=== PATIENT | female | born 1955 | race Caucasian/White ===

== ENCOUNTER 2017-07-11 09:12 | Emergency (ER) | payer MEDICAID, MEDICARE ==
[2017-07-11] MEDS ORDERED: Lidocaine 1% 20 ML MDV INFILT ONE (09:13)
--- NOTE | 2017-07-11 10:07 | EDM.PDOC ---
ED HPI GENERAL MEDICAL PROBLEM - General Chief Complaint: Laceration Stated Complaint: CUT RIGHT HAND Time Seen by Provider: 07/11/17 09:15 Source of Information: Reports: Patient History Limitations: Reports: No Limitations - History of Present Illness INITIAL COMMENTS - FREE TEXT/NARRATIVE: c/o lac of R hand pt at home, doing dishes, knife in dishwater, cut her thenar eminence last Td 2y ago not working outside of house, lives with boyfriend who is trucking contractor, has 3 dtrs Rt palm Pain Score (Numeric/FACES): 9 - Related Data Allergies Allergy/AdvReac Type Severity Reaction Status Date / Time No Known Allergies Allergy Verified 07/11/17 09:33 Home Meds: Home Meds Gabapentin [Neurontin] 100 mg PO ASDIRECTED 03/07/15 [History] Venlafaxine [Effexor XR] 75 mg PO DAILY 03/07/15 [History] Acetaminophen [Tylenol Arthritis Pain] 650 mg PO Q6H PRN 03/08/15 [History] Bisacodyl [Dulcolax] 2 tab PO DAILY 03/08/15 [History] Calcium Carbonate/Vitamin D3 [Calcium 500 + Vit D Caplet] 1 each PO DAILY [History] Ibuprofen/Diphenhydramine Cit [Advil PM Caplet] 1 tab PO BEDTIME 03/08/15 [ History] Multivitamin W/Iron, Minerals [Multivitamins with Iron] 1 each PO DAILY [History] Omeprazole Magnesium [Prilosec Otc] 20 mg PO DAILY PRN 03/08/15 [History] Cephalexin 500 mg PO TID #9 tablet 07/11/17 [Rx] Past Medical History HEENT History: Reports: Impaired 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: Musculoskeletal History: Reports: Back Pain, Chronic - Past Surgical History Other HEENT Surgeries/Procedures: ALL TOOTH EXTRACTION IN 2013 Female Surgical History: Reports: Tubal Ligation Other Musculoskeletal Surgeries/Procedures:: back surgery Social & Family History - Family History Family Medical History: Unobtainable - Tobacco Use Smoking Status *Q: Never Smoker Years of Tobacco use: 45 Packs/Tins Daily: 1 Used Tobacco, but Quit: Yes Second Hand Smoke Exposure: Yes - Caffeine Use Caffeine Use: Reports: Coffee, Soda, Tea - Recreational Drug Use Recreational Drug Use: No ED ROS GENERAL - Review of Systems Review Of Systems: See Below Constitutional: Reports: No Symptoms HEENT: Reports: No Symptoms Respiratory: Reports: No Symptoms Cardiovascular: Reports: No Symptoms Endocrine: Reports: No Symptoms GI/Abdominal: Reports: No Symptoms : Reports: No Symptoms Musculoskeletal: Reports: No Symptoms Skin: Reports: Other (lac hand) Neurological: Reports: No Symptoms Psychiatric: Reports: No Symptoms Hematologic/Lymphatic: Reports: No Symptoms Immunologic: Reports: No Symptoms ED EXAM, SKIN/RASH Exam: See Below Exam Limited By: No Limitations General Appearance: Alert, WD/WN, No Apparent Distress Skin: Other (R hand with 2 cm linear lac just into muscle, depth 2 nnm horizontal, midway between thumb and index finger, on palm, no fb, 1% lido without with #30 needle used for local with good analgesia except for 1st suture , cleaned x 12 with gauze and NS, 3-0 Ethilon interrupted x 4 used for closure, good apposition of margins) Course - Vital Signs Last Recorded V/S: Last Vital Signs Temp 36.6 C 07/11/17 09:15 Pulse 108 H 07/11/17 09:15 Resp 16 07/11/17 09:15 BP 149/109 H 07/11/17 09:15 Pulse Ox 100 07/11/17 09:15 - Orders/Labs/Meds Meds: Medications Discontinued Medications Generic Name Dose Route Start Last Admin Trade Name Rigoberto PRN Reason Stop Dose Admin Lidocaine HCl 5 ml 07/11/17 09:35 Xylocaine-Mpf 1% INJECT 07/11/17 09:36 ONETIME ONE Departure - Departure Time of Disposition: 10:05 Disposition: Home, Self-Care 01 Condition: Good Clinical Impression: Laceration of hand, right - Discharge Information Prescriptions: Cephalexin 500 mg PO TID #9 tablet Instructions: Laceration Care, Adult Referrals: Va Gomez, CHIEF DEPUTY COURT CLERK [Primary Care Provider] - Additional Instructions: Keep clean and dry. To decrease risk of infection, take cephalexin 500 mg 1 tab 3 times a day for 3 days. See your doctor in 1 week to remove sutures. See your doctor the same day, or return to the ED, for any increase in redness, swelling, pain, warmth, fever or drainage. Call your Physician or Return to Emergency Department if: * Your condition worsens in any way. * You develop fever greater than 100.4. * You have vomitting that does not stop with medications. * You have pain that is not controlled with medications.
[2017-07-11 10:40] VITALS: BP 152/86
== END 2017-07-11 10:20 | disposition home or self-care (01) ==
LOC: FB.ED 09:12
DX: S61.411A Laceration without foreign body of right hand, initial encounter (principal); W26.0XXA Contact with knife, initial encounter; Y93.89 Activity, other specified; Y92.009 Unspecified place in unspecified non-institutional (private) residence as the place of occurrence of the external cause; Z79.899 Other long term (current) drug therapy
CPT/HCPCS: 12002; 12041; 99282; 99283

== ENCOUNTER 2017-12-13 07:55 | Day surgery (SDC) | payer MEDICARE, OTHER ==
[2017-12-13] MEDS ORDERED: Sodium Chloride 0.9% 10 ML Syringe FLUSH PRN (08:15)
[2017-12-13] MEDS ORDERED: Lactated Ringers 1,000 ML IV SCH (08:15)
--- NOTE | 2017-12-13 09:31 | PCM.HPR ---
H & P Addendum review - H & P Addendum Review Date of Original H & P: 12/10/17 Date Reviewed: 12/13/17 Time Reviewed: 09:31 Patient was Examined: No Changes
[2017-12-13] MEDS ORDERED: Midazolam 1 MG/ML 2 ML SDV IV ONE (09:45)
[2017-12-13] MEDS ORDERED: Ondansetron 4 MG/2 ML SDV IVPUSH ONE (09:45)
[2017-12-13] MEDS ORDERED: fentaNYL 100 MCG/2 ML SDV IV ONE (09:45)
[2017-12-13] MEDS ORDERED: Lactated Ringers 1,000 ML IV ONE (09:45)
[2017-12-13] MEDS ORDERED: Glycopyrrolate 0.2 MG/ML 5 ML MDV IV ONE (09:45)
[2017-12-13] MEDS ORDERED: Propofol 200 MG/20 ML SDV IV ONE (09:45)
[2017-12-13] MEDS ORDERED: Rocuronium 100 MG/10 ML MDV IV ONE (09:45)
[2017-12-13] MEDS ORDERED: Neostigmine Methylsulfate 10 MG/10 ML MDV IVPUSH ONE (09:45)
[2017-12-13] MEDS ORDERED: Ketorolac 30 MG/ML SDV IVPUSH ONE (09:45)
--- NOTE | 2017-12-13 10:42 | PCM.OPNOTE ---
- General Post-Op/Procedure Note Date of Surgery/Procedure: 12/13/17 Operative Procedure(s): Lap Paola Findings: Chronic Cholecystitis Pre Op Diagnosis: Chronic Cholecystitis Post-Op Diagnosis: Same Anesthesia Technique: General ET Tube Primary Surgeon: Ramesh Melissa Pathology: GB EBL in mLs: 5 Complications: None Condition: Good
[2017-12-13] MEDS ORDERED: Morphine 2 MG/ML Syringe IVPUSH PRN (10:44)
[2017-12-13] MEDS ORDERED: Acetaminophen/HYDROcodone 325-5 MG Tab PO PRN (10:44)
[2017-12-13] MEDS ORDERED: hydrOXYzine HCl 50 MG/ML SDV IM ONE (11:42)
[2017-12-13 13:49] VITALS: BP 133/85
--- NOTE | 2017-12-13 14:18 | OR ---
DATE OF OPERATION: 12/13/2017 SURGEON: Ramesh Melissa MD PREOPERATIVE DIAGNOSIS: Chronic cholecystitis. POSTOPERATIVE DIAGNOSIS: Chronic cholecystitis. PROCEDURE: Laparoscopic cholecystectomy. ANESTHESIA: General. PROCEDURE IN DETAIL: Patient was brought to the operating room, where general endotracheal anesthesia was administered. Time-out was performed. The abdomen was prepped with ChloraPrep and draped sterilely. An infraumbilical incision was made and extended into the peritoneal cavity without difficulty. The Gilbert cannula was introduced and pneumoperitoneum obtained. Remaining three 5 mm ports were placed in the usual positions. The patient was placed in reverse Trendelenburg position and rotated to the left. General exploration revealed the surface of the liver, bowel, omentum, and peritoneal surfaces to be normal. The gallbladder was grasped and grossly appeared normal. The gallbladder was retracted cephalad and dissection was used to clear off the cystic duct and cystic artery. This was fibrosed and many small vascular branches present that were divided with electrocautery. This was all consistent with chronic cholecystitis. The cystic artery was doubly clipped proximally and once distally and then transected. Dissection was then continued along the base of the gallbladder and cystic duct where there was a fair amount of fibrotic tissue that was carefully dissected free. Once the anatomy of the gallbladder was clearly defined and the cystic duct could be seen entering the gallbladder and extending towards the common bile duct, it was doubly clipped proximally and once distally and then transected. The gallbladder was then removed from the bed of the liver using electrocautery without difficulty. Minimal oozing occurred that was controlled with cautery. A vascular branch along the anterior peritoneal fold was clipped and then cauterized. Once the gallbladder was completely freed up, was brought out through the umbilical incision. The right upper quadrant was thoroughly inspected and irrigated and hemostasis was assured. Ports were removed under direct vision and remained hemostatic. Umbilical fascia was closed with [id number] 0 Vicryl. Skin was closed with 4-0 Vicryl subcuticular sutures. Benzoin and Steri-Strips were placed and Band- Aids applied. The patient tolerated the procedure well. Estimated blood loss was 5 mL. She returned to postanesthesia in stable condition. /[id number] DIANE/MADHU
== END 2017-12-13 13:41 | disposition home or self-care (01) ==
LOC: FB.SDS 07:55
PROVIDERS: ATTEND Surgery
DX: K81.1 Chronic cholecystitis (principal); K21.9 Gastro-esophageal reflux disease without esophagitis; E78.5 Hyperlipidemia, unspecified; F32.9 Major depressive disorder, single episode, unspecified; Z87.891 Personal history of nicotine dependence
CPT/HCPCS: 00790; 47562; 88304; A9270; J1885; J2250; J2405; J2704; J2710; J3010; J3410; J3490; J7120

== ENCOUNTER 2024-05-02 08:58 | Emergency (ER) | payer MEDICARE ==
[2024-05-02 09:11] VITALS: BP 157/104; PULSE 120
[2024-05-02] MEDS: Ondansetron 4 MG/2 ML SDV IVPUSH ONE ×2 (09:42→11:24)
[2024-05-02] MEDS: Pantoprazole 40 MG Vial IVPUSH ONE (09:42)
[2024-05-02] MEDS: Sodium Chloride 0.9% 1,000 ML IV ONE (09:45)
[2024-05-02 09:48] LABS: HEMATOCRIT 45.4 % (34.2-48.2); HEMOGLOBIN 15.7 g/dL (11.4-15.5); MEAN CORPUSCULAR HEMOGLOBIN 32.1 pg (23.9-33.9); MEAN CORPUSCULAR HGB CONC 34.5 g/dL (31.9-34.8); MEAN CORPUSCULAR VOLUME 93.1 fL (76.7-100.5); MEAN PLATELET VOLUME 7.9 fL (7.1-12.4); PLATELET COUNT,PLT 286 x10(3)uL (151-488); RED BLOOD CELL COUNT 4.88 x10(6)uL (3.60-5.20); RED CELL DISTRIBUTION WIDTH 13.5 % (12.3-16.5); WHITE BLOOD CELL COUNT,WBC 23.8 x10-3/uL (3.0-10.3)
[2024-05-02 09:54] LABS: INR 1.13 (1.00-1.24); PROTHROMBIN TIME 11.6 sec (9.0-11.1)
[2024-05-02 09:57] LABS: BLOOD UREA NITROGEN,BUN 25 mg/dL (7-18); BUN/CREATININE RATIO 17.9 (9-20); CALCIUM 10.5 mg/dL (8.6-10.2); CARBON DIOXIDE,CO2 30 mmol/L (21-32); CHLORIDE,CL 102 mmol/L (100-110); CREATININE 1.4 mg/dL (0.55-1.02); EST CRCL DRUG DOSING (CG) 29.99 mL/min; ESTIMATED GFR 41 mL/min (>60); GLUCOSE RANDOM 115 mg/dL (80-116); POTASSIUM,K 3.6 mmol/L (3.5-5.3); SODIUM,NA 144 mmol/L (135-145)
[2024-05-02 10:03] LABS: A/G RATIO 1.1; ALANINE AMINOTRANSFERASE,ALT 22 U/L (12-36); ALBUMIN 4.4 g/dL (3.2-4.6); ALKALINE PHOSPHATASE 125 IU/L (56-112); ASPARTATE AMNIOTRANSFERASE,AST 14 IU/L (5-25); BILIRUBIN TOTAL 0.9 mg/dL (0.1-1.3); PROTEIN TOTAL,TP 8.3 g/dL (6.0-8.0)
[2024-05-02 10:06] LABS: C-REACTIVE PROTEIN 1.17 mg/dL (<0.50); LACTIC ACID 1.7 mmol/L (0.4-2.0); LIPASE 30 U/L (16-77)
[2024-05-02 10:13] LABS: TROPONIN I < 4.0 pg/mL (4.0-60.3)
[2024-05-02 11:20] LABS: LYMPHOCYTES PERCENT MAN 10 % (13-37); MONOCYTES PERCENT MAN 4 % (4-12); SEG NEUTROPHILS PERCENT MAN 86 % (46-82); TOXIC GRANULATION MODERATE (NOT SEEN)
[2024-05-02] MEDS: Sodium Chloride 0.9% 10 ML Syringe FLUSH PRN (11:24)
== END 2024-05-02 12:35 | disposition home or self-care (01) ==
LOC: FB.ED 08:58 → MERGE 08:58 → FB.ED 12:35
DX: K27.4 Chronic or unspecified peptic ulcer, site unspecified, with hemorrhage (principal); I10 Essential (primary) hypertension; Z87.891 Personal history of nicotine dependence
CPT/HCPCS: 80053; 83605; 83690; 84484; 85025; 85610; 86140; 96361; 96374; 96375; 96376; 99284; J2405; J2470; J7030